=== PATIENT | female | born 1985 | race Two or more races ===

== ENCOUNTER 2017-08-07 07:42 | Outpatient (CLI) | payer OTHER ==
[~2017-08-07 07:42] MED LIST: CEFADROXIL500 MG PO
== END 2017-08-07 09:00 | disposition home or self-care (01) ==
LOC: NUCLEAR 07:42
DX: I80.222 Phlebitis and thrombophlebitis of left popliteal vein (principal); E03.8 Other specified hypothyroidism; J45.998 Other asthma; I10 Essential (primary) hypertension; Z83.2 Family history of diseases of the blood and blood-forming organs and certain disorders involving the immune mechanism

== ENCOUNTER 2018-08-29 16:07 | Emergency (ER) | payer OTHER ==
[~2018-08-29] VITALS: Ht 165.1 cm; Wt 89.4 kg
== END 2018-08-29 19:04 | disposition home or self-care (01) ==
LOC: ER 16:07
DX: K29.70 Gastritis, unspecified, without bleeding (principal)

== ENCOUNTER 2018-09-18 07:13 | Outpatient (CLI) | payer OTHER | END 2018-09-18 07:15 | disposition home or self-care (01) | LOC: NUCLEAR 07:13 | DX: K21.9 Gastro-esophageal reflux disease without esophagitis (principal); K82.9 Disease of gallbladder, unspecified | CPT/HCPCS: 78227; A9537 ==

== ENCOUNTER 2020-07-22 09:24 | Outpatient (CLI) | payer OTHER | END 2020-07-22 09:32 | disposition home or self-care (01) | LOC: MAMO-SONO 09:24 | PROVIDERS: ATTEND Obstetrics & Gynecology | DX: N64.4 Mastodynia (principal); E04.2 Nontoxic multinodular goiter ==

== ENCOUNTER 2021-04-14 14:13 | Outpatient (CLI) | payer OTHER | END 2021-04-14 14:22 | disposition home or self-care (01) | LOC: LAB 14:13 | PROVIDERS: ATTEND Orthopaedic Surgery | DX: E55.9 Vitamin D deficiency, unspecified (principal); M85.9 Disorder of bone density and structure, unspecified; E56.1 Deficiency of vitamin K ==

== ENCOUNTER 2022-03-08 13:42 | Inpatient (IN) | payer OTHER ==
[~2022-03-08] VITALS: Ht 165.1 cm; Wt 3.2 kg
== END 2022-03-10 14:00 | disposition home or self-care (01) | DRG 788 ==
LOC: LDR 13:42 → OB/GYN 13:42
PROVIDERS: ADMIT Obstetrics & Gynecology; ATTEND Obstetrics & Gynecology
PROC: 4A1HXCZ Monitoring of Products of Conception, Cardiac Rate, External Approach (ICD-10-PCS; 2022-03-08)
PROC: 10D00Z1 Extraction of Products of Conception, Low, Open Approach (ICD-10-PCS; principal; 2022-03-08 21:00)
DX: O36.8330 Maternal care for abnormalities of the fetal heart rate or rhythm, third trimester, not applicable or unspecified (principal); Z3A.39 39 weeks gestation of pregnancy; Z37.0 Single live birth; Z20.822 Contact with and (suspected) exposure to COVID-19

== ENCOUNTER 2023-05-14 07:03 | Outpatient (CLI) | payer OTHER | END 2023-05-14 07:15 | disposition home or self-care (01) | LOC: RAD 07:03 | PROVIDERS: ATTEND Orthopaedic Surgery | DX: M25.532 Pain in left wrist (principal); Z88.6 Allergy status to analgesic agent; Z91.013 Allergy to seafood; Z91.041 Radiographic dye allergy status ==